=== PATIENT | male | born 1995 | race Caucasian/White ===

== ENCOUNTER 2021-03-06 12:03 | Emergency (ER) | payer OTHER ==
[~2021-03-06] VITALS: Ht 172.7 cm; Wt 75.0 kg
[2021-03-06] MEDS ORDERED: CEPH500C2 MT (13:49)
[2021-03-06 14:12] VITALS: BP 115/79
== END 2021-03-06 14:12 | disposition home or self-care (01) ==
LOC: ER 12:03
DX: S51.811A Laceration without foreign body of right forearm, initial encounter (principal); X58.XXXA Exposure to other specified factors, initial encounter; Y93.89 Activity, other specified; Y92.89 Other specified places as the place of occurrence of the external cause
CPT/HCPCS: 12002; 99282